=== PATIENT | female | born 1945 | race Caucasian/White ===

== ENCOUNTER 2016-05-31 22:27 | Observation (INO) | payer BC ==
[~2016-05-31] VITALS: Ht 152.4 cm; Wt 46.8 kg
--- NOTE | 2016-05-31 22:52 | EMERGENCY ROOM VISIT NOTE ---
History Report prepared by Manolo: Diaz Washburn Under the Supervision of: Dr. Florentino Hall M.D. First contact with patient: 22:37 Chief Complaint: WEAKNESS Stated Complaint: LETHARGIC, WEAKNESS History of Present Illness The patient is a 70 year old female who presents to the Emergency Room with complaints of persistent bilateral leg weakness for the past 24 hours. The patient has a slight headache. The patient had two new painkillers that she has never had before earlier today. The patient saw a Neurologist in [place] yesterday and was confirmed to have Parkinson's this morning. The patient had a fall in her hotel in [place] Friday night and spent the night in [place]'s ED. The patient had an X-ray that showed no fractures of the hip. She did not hit her head when she fell. The patient denies any fevers, cough, chest pain, shortness of breath, abdominal pain. The patient lives in [place] and is in [place] visiting a friend. Source of History: patient, friend Onset: 24 hours Position: leg (bilateral) Quality: other (weakness) Timing: other (persistent) Associated Symptoms: + headache, No SOB, No abdominal pain, No chest pain, No cough, No fevers Review of Systems See HPI for pertinent positives & negatives. A total of 10 systems reviewed and were otherwise negative. Past Medical & Surgical Medical Problems: (1) Parkinson disease Old medical records were attempted to be reviewed but there are no old records at this hospital. Nurse's notes were reviewed and I agree with. Family History FH: Parkinson's disease Social History Smoking Status: Never Smoker Housing Status: lives alone Current/Historical Medications Scheduled Atorvastatin (Lipitor), 10 MG PO DAILY Clopidogrel (Plavix), 75 MG PO DAILY Cyanocobalamin (Vitamin B-12), 1,000 MCG PO DAILY Donepezil Hydrochloride (Aricept), 10 MG PO DAILY Escitalopram (Lexapro), 10 MG PO DAILY Levothyroxine Sodium (Synthroid), 50 MCG PO DAILY Metoprolol Succ (Toprol Xl) (Toprol-Xl), 25 MG PO DAILY Scheduled PRN Naproxen (Aleve), 220 MG PO Q12 PRN for Pain Allergies Coded Allergies: No Known Allergies (Unverified , 05/31/16) Physical Exam Vital Signs Date Time Temp Pulse Resp B/P Pulse Ox O2 Delivery O2 Flow Rate FiO2 06/01/16 02:04 69 06/01/16 00:27 63 16 06/01/16 00:17 125/49 05/31/16 23:57 68 17 05/31/16 23:42 61 17 05/31/16 23:29 123/73 05/31/16 23:27 66 17 05/31/16 23:12 68 23 05/31/16 22:59 109/52 05/31/16 22:57 64 17 05/31/16 22:49 67 05/31/16 22:35 97 Room Air 05/31/16 22:35 37.2 68 16 157/60 96 Room Air 05/31/16 22:31 157/60 Physical Exam General: Non ill appearing older female, sleepy but arousable. HEENT: Normal cephalic atraumatic. Pupils are equal round and reactive to light. Extraocular movements are intact. Oropharynx is pink with moist mucous membranes. No swelling of the mouth lips or tongue. Neck: Supple with a midline trachea. No meningeal signs or stiffness, no JVD or bruits. No Stridor. Chest: Clear to auscultation bilaterally. No wheezes or rhonchi. No increased work of breathing. Heart: regular rate and rhythm. Abdomen: Soft nontender, nondistended without rebound guarding or rigidity. Extremities: Bruising on the left leg, pain with movement of the right hip. Spine/Back. Non tender to palpation. No CVA tenderness Skin: Good turgor without rashes. Neurologic exam: Cranial nerves two through 12 are intact. Motor and sensation are intact and symmetrical throughout. Medical Decision & Procedures ER Provider Diagnostic Interpretation: X-ray results as stated below per interpretation by me. CT results as stated below per my review and radiologist interpretation: CT HEAD: No intracranial hemorrhage or mass effect. Radiologist: Danny Donahue MD. CHEST X-RAY: Chest x-ray per my interpretation reveals no pneumothorax, failure , or infiltrate. Laboratory Results 05/31/16 23:15 Red Blood Count 3.52, Mean Corpuscular Volume 90.9, Mean Corpuscular Hemoglobin 30.1, Mean Corpuscular Hemoglobin Concent 33.1, Mean Platelet Volume 10.3, Neutrophils (%) (Auto) 85.2, Lymphocytes (%) (Auto) 5.9, Monocytes (%) (Auto) 8.6, Eosinophils (%) (Auto) 0.1, Basophils (%) (Auto) 0.1, Neutrophils # (Auto) 9.40, Lymphocytes # (Auto) 0.65, Monocytes # (Auto) 0.95, Eosinophils # (Auto) 0.01, Basophils # (Auto) 0.01 05/31/16 23:15 Test 05/31/16 23:15 05/31/16 23:19 05/31/16 23:33 06/01/16 00:25 White Blood Count 11.03 K/uL (4.8-10.8) Red Blood Count 3.52 M/uL (4.2-5.4) Hemoglobin 10.6 g/dL (12.0-16.0) Hematocrit 32.0 % (37-47) Mean Corpuscular Volume 90.9 fL (80-100) Mean Corpuscular Hemoglobin 30.1 pg (25-34) Mean Corpuscular Hemoglobin Concent 33.1 g/dl (32-36) Platelet Count 234 K/uL (130-400) Mean Platelet Volume 10.3 fL (7.4-10.4) Neutrophils (%) (Auto) 85.2 % Lymphocytes (%) (Auto) 5.9 % Monocytes (%) (Auto) 8.6 % Eosinophils (%) (Auto) 0.1 % Basophils (%) (Auto) 0.1 % Neutrophils # (Auto) 9.40 K/uL (1.4-6.5) Lymphocytes # (Auto) 0.65 K/uL (1.2-3.4) Monocytes # (Auto) 0.95 K/uL (0.11-0.59) Eosinophils # (Auto) 0.01 K/uL (0-0.5) Basophils # (Auto) 0.01 K/uL (0-0.2) RDW Standard Deviation 47.7 fL (36.4-46.3) RDW Coefficient of Variation 14.4 % (11.5-14.5) Immature Granulocyte % (Auto) 0.1 % Immature Granulocyte # (Auto) 0.01 K/uL (0.00-0.02) Prothrombin Time 11.2 SECONDS (9.0-12.0) Prothromb Time International Ratio 1.0 (0.9-1.1) Activated Partial Thromboplast Time 21.2 SECONDS (21.0-31.0) Partial Thromboplastin Ratio 0.8 Anion Gap 10.0 mmol/L (3-11) Est Creatinine Clear Calc Drug Dose 36.5 ml/min Estimated GFR () 65.2 Estimated GFR (Non- 56.2 BUN/Creatinine Ratio 20.0 (10-20) Calcium Level 9.1 mg/dl (8.5-10.1) Total Bilirubin 0.8 mg/dl (0.2-1) Direct Bilirubin 0.2 mg/dl (0-0.2) Aspartate Amino Transf (AST/SGOT) 26 U/L (15-37) Alanine Aminotransferase (ALT/SGPT) 24 U/L (12-78) Alkaline Phosphatase 62 U/L (45-117) Total Creatine Kinase 150 U/L (26-192) Creatine Kinase MB 3.3 ng/ml (0.5-3.6) Creatine Kinase MB Ratio 2.2 (0-3.0) Total Protein 6.9 gm/dl (6.4-8.2) Albumin 3.8 gm/dl (3.4-5.0) Lipase 286 U/L (73-393) Bedside Glucose 133 mg/dl (70-90) Bedside Troponin I 0.000 ng/ml (0-0.045) Urine Color YELLOW Urine Appearance CLEAR (CLEAR) Urine pH 5.5 (4.5-7.5) Urine Specific [place] 1.014 (1.000-1.030) Urine Protein NEG (NEG) Urine Glucose (UA) NEG (NEG) Urine Ketones 1+ (NEG) Urine Occult Blood NEG (NEG) Urine Nitrite NEG (NEG) Urine Bilirubin NEG (NEG) Urine Urobilinogen NEG (NEG) Urine Leukocyte Esterase NEG (NEG) Laboratory studies as stated above per my review. ECG Indication: weakness Rate (beats per minute): 70 Rhythm: normal sinus Findings: no acute ischemic change, prolonged QT (mild), no ectopy Comparison ECG Date: no prior available ED Course 2240: Past medical records reviewed. The patient was evaluated in room B12a, and a complete history and physical examination were performed. 2355: The patient seems to be doing better. She is more awake now. 0220: Reassessed the patient. She is doing well. I will see if her and her family are up for discharge. Medical Decision Differential diagnosis includes infection, dehydration, electrolyte or metabolic abnormality, trauma, anemia. This patient comes in as described above. She was placed in room B12. she complains of feeling tired and weak. She has fallen several times recently. She did not fall today however. She was seen at [facility] yesterday by a neurologist for possible Parkinson's. She is not on any medications for this yet. She has been on pain medication after she fell yesterday and injured her right hip. She has no focal numbness weakness but it hurts to move the right hip she had imaging at [place] and they came here today to visit her friend. IV access was established and multiple blood testing was obtained. She has no fever or white count to suggest infection. She's no acute electrolyte or metabolic abnormalities. CAT scan of her head was unremarkable as was chest x-ray. EKG does not suggest acute coronary syndrome or arrhythmia. I think a lot of this may be related to the pain medication. She also has some underlying Parkinson's disease. She however is unable to ambulate even with a walker very well. I have consulted Dr. Laguna, who saw her in the ER. He would like to get a CAT scan of her back which I ordered as well as a CAT scan of her abdomen. She will be admitted. Impression Primary Impression: Weakness Additional Impression: Parkinson disease Scribe Attestation The scribe's documentation has been prepared under my direction and personally reviewed by me in its entirety. I confirm that the note above accurately reflects all work, treatment, procedures, and medical decision making performed by me. Departure Information Dispostion Home / Self-Care Forms HOME CARE DOCUMENTATION FORM, IMPORTANT VISIT INFORMATION Patient Instructions My [facility] Additional Instructions Rest. Drink plenty of fluids. Be careful getting up and down. Use a walker. The pain medicine seems may make you tired try to limit the usage REturn if: worsening of symptoms, fever, any new problems or concerns. Follow- up with your doctor on Friday for recheck Problem Qualifiers
[2016-05-31] MEDS ORDERED: ATOR10TA88 PO (23:10)
[2016-05-31] MEDS ORDERED: CYAN10005 PO (23:10)
[2016-05-31] MEDS ORDERED: ESCI10TA17 PO (23:10)
[2016-05-31] MEDS ORDERED: LEVO50TA PO (23:10)
[2016-05-31] MEDS ORDERED: DONE10TA12 PO (23:10)
[2016-05-31] MEDS ORDERED: NAPR1TAB9 PO (23:10)
[2016-05-31] MEDS ORDERED: CLOP1TAB15 PO (23:10)
[2016-05-31] MEDS ORDERED: METO25TA3 PO (23:10)
[2016-05-31 23:37] LABS: MEAN CELL VOLUME 90.9 fL (80-100); MEAN CORPUSCULAR HEMOGLOBIN 30.1 pg (25-34); MEAN CORPUSCULAR HGB CONC 33.1 g/dl (32-36); MEAN PLATELET VOLUME 10.3 fL (7.4-10.4); PLATELET COUNT 234 K/uL (130-400); RED BLOOD COUNT 3.52 M/uL (4.2-5.4); WHITE BLOOD COUNT 11.03 K/uL (4.8-10.8)
[2016-05-31 23:45] LABS: PARTIAL THROMBOPLASTIN RATIO 0.8; PROTHROMBIN TIME (PATIENT) 11.2 SECONDS (9.0-12.0)
[2016-06-01] LABS: CKMB/CK RATIO 2.2 (0-3.0)
[2016-06-01 00:02] LABS: BASO % 0.1 %; BASO ABS # 0.01 K/uL (0-0.2); COMPLETE YES; EOS % 0.1 %; IG% 0.1 %; LYMPH % 5.9 %; LYMPH ABS # 0.65 K/uL (1.2-3.4); MONO % 8.6 %; NEUT % 85.2 %
[2016-06-01 00:46] LABS: URINE APPEARANCE CLEAR (CLEAR); URINE BILIRUBIN NEG (NEG); URINE COLOR YELLOW; URINE NITRITE NEG (NEG); URINE PH 5.5 (4.5-7.5); URINE SPECIFIC GRAVITY 1.014 (1.000-1.030); UROBILINOGEN NEG (NEG)
[2016-06-01 00:52] LABS: MANUAL MICROSCOPIC REQUIRED? NO; REVIEW REQ? NO
[2016-06-01 01:15] LABS: CALCIUM 9.1 mg/dl (8.5-10.1)
[2016-06-01] MEDS ORDERED: OPTIRAY 320 IV PRN (03:30)
[2016-06-01] MEDS ORDERED: ONDANSETRON INJ 2 MG/ML 2 ML VIAL IV PRN (03:45)
--- NOTE | 2016-06-01 04:26 | History and Physical ---
History & Physical Date & Time of Service: Jun 01, 2016 at 04:18 Chief Complaint: Lethargic, Weakness Primary Care Physician: No Doctor, Assigned History of Present Illness Source: patient The patient is a 70-year-old female who presents to the emergency department with complaint of bilateral lower extremity weakness over the past 24 hours. The patient saw a neurologist at [facility] yesterday, and was given a diagnosis of Parkinson's. Later on yesterday she had a fall in her hotel, and spent the night in the emergency department at [facility], with a negative workup including no fractures of the hip. She denies any head trauma during the fall. She was given 2 new painkillers from the ED at [facility], and took them for the first time this morning. The patient lives in [place], and is presently visiting a friend in [place], when her symptoms developed. Past Medical/Surgical History Medical Problems: (1) Parkinson disease Status: Chronic Family History FH: Parkinson's disease Social History Smoking Status: Never Smoker Smokeless Tobacco Use: No Alcohol Use: none Drug Use: none Occupational Status: retired Multi-Drug Resistant Organisms History of MDRO: No Allergies Coded Allergies: No Known Allergies (Unverified , 05/31/16) Home Medications Scheduled Atorvastatin (Lipitor), 10 MG PO DAILY Clopidogrel (Plavix), 75 MG PO DAILY Cyanocobalamin (Vitamin B-12), 1,000 MCG PO DAILY Donepezil Hydrochloride (Aricept), 10 MG PO DAILY Escitalopram (Lexapro), 10 MG PO DAILY Levothyroxine Sodium (Synthroid), 50 MCG PO DAILY Metoprolol Succ (Toprol Xl) (Toprol-Xl), 25 MG PO DAILY Scheduled PRN Naproxen (Aleve), 220 MG PO Q12 PRN for Pain Review of Systems The patient denies chest pain, palpitations, shortness of breath, cough, lower extremity swelling, vision change, hearing change, sore throat, fevers, chills, sweats, weight change, fatigue, nausea, vomiting, abdominal pain, pelvic pain, blood in urine or stool, dysuria, urinary frequency or urgency, lightheadedness , dizziness, headache, memory loss, rash, abnormal bruising or bleeding, arthralgias or myalgias, back or neck pain, night sweats, or allergy symptoms. The review of systems is otherwise negative other than for that already noted above, and at least 10 systems have been reviewed. Physical Exam Vital Signs Date Time Temp Pulse Resp B/P Pulse Ox O2 Delivery O2 Flow Rate FiO2 06/01/16 02:59 120/56 06/01/16 02:32 61 9 81 06/01/16 02:04 69 06/01/16 01:59 98/47 06/01/16 00:59 101/62 06/01/16 00:32 63 19 06/01/16 00:27 63 16 06/01/16 00:17 125/49 05/31/16 23:57 68 17 05/31/16 23:42 61 17 05/31/16 23:29 123/73 05/31/16 23:27 66 17 05/31/16 23:12 68 23 05/31/16 22:59 109/52 05/31/16 22:57 64 17 05/31/16 22:49 67 05/31/16 22:35 97 Room Air 05/31/16 22:35 37.2 68 16 157/60 96 Room Air 05/31/16 22:31 157/60 The patient is awake, alert and oriented 3, normocephalic and atraumatic, lying in bed and in no acute distress. HEENT--PERRL, EOMI, mucous membranes and oropharynx dry. Neck--supple, no JVD or bruits, thyroid normal, trachea midline, no adenopathy. Heart--normal S1 and S2, no extra beats, no murmurs, rubs or gallops. Lungs--clear bilaterally, no respiratory distress, no accessory muscle use. Abdomen--normal bowel sounds and soft, nontender and nondistended, no hernias or masses, no organomegaly. Extremities--no cyanosis, clubbing or edema. There are good distal pulses b/l. Dermatologic--normal skin turgor, normal color, warm and dry, no abnormal lymph nodes, no rash. Neurologic--cranial nerves II through XII grossly intact, sensation intact, motor strength lower extremities 4+ out of 5 bilaterally, upper extremities motor is normal. Psychiatric--normal affect. Diagnostics Laboratory Results Results Past 24 Hours Test 05/31/16 23:15 05/31/16 23:19 05/31/16 23:33 06/01/16 00:25 Range/Units White Blood Count 11.03 4.8-10.8 K/uL Red Blood Count 3.52 4.2-5.4 M/uL Hemoglobin 10.6 12.0-16.0 g/dL Hematocrit 32.0 37-47 % Mean Corpuscular Volume 90.9 80-100 fL Mean Corpuscular Hemoglobin 30.1 25-34 pg Mean Corpuscular Hemoglobin Concent 33.1 32-36 g/dl Platelet Count 234 130-400 K/uL Mean Platelet Volume 10.3 7.4-10.4 fL Neutrophils (%) (Auto) 85.2 % Lymphocytes (%) (Auto) 5.9 % Monocytes (%) (Auto) 8.6 % Eosinophils (%) (Auto) 0.1 % Basophils (%) (Auto) 0.1 % Neutrophils # (Auto) 9.40 1.4-6.5 K/uL Lymphocytes # (Auto) 0.65 1.2-3.4 K/uL Monocytes # (Auto) 0.95 0.11-0.59 K/uL Eosinophils # (Auto) 0.01 0-0.5 K/uL Basophils # (Auto) 0.01 0-0.2 K/uL RDW Standard Deviation 47.7 36.4-46.3 fL RDW Coefficient of Variation 14.4 11.5-14.5 % Immature Granulocyte % (Auto) 0.1 % Immature Granulocyte # (Auto) 0.01 0.00-0.02 K/uL Prothrombin Time 11.2 9.0-12.0 SECONDS Prothromb Time International Ratio 1.0 0.9-1.1 Activated Partial Thromboplast Time 21.2 21.0-31.0 SECONDS Partial Thromboplastin Ratio 0.8 Sodium Level 142 136-145 mmol/L Potassium Level 4.0 3.5-5.1 mmol/L Chloride Level 105 98-107 mmol/L Carbon Dioxide Level 27 21-32 mmol/L Anion Gap 10.0 3-11 mmol/L Blood Urea Nitrogen 20 7-18 mg/dl Creatinine 1.00 0.60-1.20 mg/dl Est Creatinine Clear Calc Drug Dose 36.5 ml/min Estimated GFR () 65.2 Estimated GFR (Non- 56.2 BUN/Creatinine Ratio 20.0 10-20 Random Glucose 136 70-99 mg/dl Calcium Level 9.1 8.5-10.1 mg/dl Total Bilirubin 0.8 0.2-1 mg/dl Direct Bilirubin 0.2 0-0.2 mg/dl Aspartate Amino Transf (AST/SGOT) 26 15-37 U/L Alanine Aminotransferase (ALT/SGPT) 24 12-78 U/L Alkaline Phosphatase 62 45-117 U/L Total Creatine Kinase 150 26-192 U/L Creatine Kinase MB 3.3 0.5-3.6 ng/ml Creatine Kinase MB Ratio 2.2 0-3.0 Total Protein 6.9 6.4-8.2 gm/dl Albumin 3.8 3.4-5.0 gm/dl Lipase 286 73-393 U/L Bedside Glucose 133 70-90 mg/dl Bedside Troponin I 0.000 0-0.045 ng/ml Urine Color YELLOW Urine Appearance CLEAR CLEAR Urine pH 5.5 4.5-7.5 Urine Specific [place] 1.014 1.000-1.030 Urine Protein NEG NEG Urine Glucose (UA) NEG NEG Urine Ketones 1+ NEG Urine Occult Blood NEG NEG Urine Nitrite NEG NEG Urine Bilirubin NEG NEG Urine Urobilinogen NEG NEG Urine Leukocyte Esterase NEG NEG Microbiology Results 06/01/16 Urine Culture, Received Pending Impression Assessment and Plan Bilateral lower extremity weakness causing ambulatory dysfunction--the patient will be admitted to the medical floor. CT of the head and lumbar spine were both negative. Her symptoms are likely related to underlying Parkinson's, and the opiate pain medication she was started on yesterday. The patient will not get any further opiate medications, and we'll consult neurology regarding her symptoms. We'll consult physical therapy and occupational therapy as well. Hypertension--continue metoprolol succinate 25 mg by mouth daily, and Plavix 75 mg by mouth daily. Hypercholesterolemia--continue atorvastatin 10 mg by mouth daily. Depression--continue Lexapro 10 mg by mouth daily. Hypothyroidism--continue levothyroxine sodium 50 g by mouth daily. Vitamin B-12 deficiency--continue supplement 1000 g by mouth daily. Level of Care Med/Surg Advanced Directives Existing Advance Directive: No Existing Living Will: No Existing Power of Reel Cutter: No Resuscitation Status FULL RESUSCITATION VTE Prophylaxis VTE Risk Assessment Done? Y/N: Yes Risk Level: High
[2016-06-01] MEDS ORDERED: IV FLUIDS COMPLETED PRN (05:15)
--- NOTE | 2016-06-01 06:12 | DIAGNOSTIC IMAGING REPORT ---
CHEST ONE VIEW PORTABLE CLINICAL HISTORY: Atypical chest pain COMPARISON STUDY: No previous studies for comparison. FINDINGS: The cardiac and mediastinal contours are normal. There is no evidence of focal pulmonary consolidation. There is no evidence of failure. No pleural effusions are visualized.[ The patient appears mildly hyperinflated. There is an azygos fissure. IMPRESSION: No active disease in the chest. Electronically signed by: Marcos Sanabria M.D. 06/01/2016 6:11 AM Dictated Date/Time: 06/01/2016 6:10 AM
[2016-06-01 06:17] VITALS: BP 153/79; PULSE 68; TEMP 36.8; O2SAT 100; Ht 152.4 cm; Wt 46.8 kg
[2016-06-01] MEDS: LEVOTHYROXINE 50 MCG TAB PO SCH (06:38)
[2016-06-01] MEDS: NSS + 20MEQ KCL 1000ML 1,000 ML IV SCH ×2 (06:38→16:26)
--- NOTE | 2016-06-01 06:40 | DIAGNOSTIC IMAGING REPORT ---
CT HEAD WITHOUT CONTRAST (CT) CLINICAL HISTORY: Weakness, possible stroke COMPARISON STUDY: No previous studies for comparison. TECHNIQUE: Axial CT of the brain is performed from the vertex to the skull base. IV contrast was not administered for this examination. CT DOSE: 1203.96 mGy.cm FINDINGS: No intra or extra-axial mass lesions are visualized. There is no CT evidence of acute cortical infarction. There is no evidence of midline shift. There is no acute hemorrhage. No calvarial fractures are visualized. There are minor white matter hypodensities likely on a small vessel basis. There is subtle hypodensity within the left external capsule, likely relating to a prior ischemic insult. There is no evidence of pathologic ventricular dilatation. There is no evidence of acute sinusitis IMPRESSION: No acute intracranial findings Electronically signed by: Marcos Sanabria M.D. 06/01/2016 6:39 AM Dictated Date/Time: 06/01/2016 6:38 AM
[2016-06-01 07:18] VITALS: BP 126/77; PULSE 67; TEMP 36.6; O2SAT 97
[2016-06-01] MEDS: CLOPIDOGREL BISULFATE 75 MG TAB PO SCH (09:07)
[2016-06-01] MEDS: DONEPEZIL HCL 10 MG TAB PO SCH (09:08)
[2016-06-01] MEDS: ESCITALOPRAM OXALATE 10 MG TAB PO SCH (09:08)
[2016-06-01] MEDS: ATORVASTATIN 10 MG TAB PO SCH (09:08)
[2016-06-01] MEDS: CYANOCOBALAMIN 500 MCG TAB (VIT B-12) PO SCH (09:08)
[2016-06-01] MEDS: METOPROLOL SUCC 25MG EXT REL TAB PO SCH (09:08)
--- NOTE | 2016-06-01 09:23 | DIAGNOSTIC IMAGING REPORT ---
CT ABD/PELVIS IV CONTRAST ONLY CLINICAL HISTORY: Abdominal pain status post trauma COMPARISON STUDY: None. TECHNIQUE: Following the IV administration of 109 mL of Optiray-320, CT scan of the abdomen and pelvis was performed from the lung bases to the proximal femurs. Images are reviewed in the axial, sagittal, and coronal planes. IV contrast was administered without complication. CT DOSE: 245.71 mGy.cm FINDINGS: Lower chest: The heart is normal in size and configuration, without pericardial effusion. The lung bases and pleural spaces are clear. Liver: There is hepatic steatosis. No focal masses are visualized. Gallbladder: Cholelithiasis. 8 mm common bile duct Spleen: Normal in size and attenuation. Pancreas: Unremarkable. Adrenal glands: Unremarkable. Kidneys: There is symmetric renal cortical enhancement. The kidneys are normal in size without hydronephrosis. Bowel: There are no transition zones indicate bowel obstruction. There are nonspecific central mesenteric calcifications, with equivocal mild central mesenteric edema.. Evaluation of this area is limited due to the lack of orally administered contrast. Peritoneum: There is no intraperitoneal free air or abdominal ascites. Vasculature: The abdominal aorta is normal in course and caliber. Adenopathy: None. Pelvic viscera: No pathologic pelvic masses are visualized. Skeletal structures: There is enlargement and edema of the right iliopsoas. There is edema adjacent to the right femoral vasculature. IMPRESSION: 1. Enlargement and edema of the right iliopsoas muscle. There is also edema adjacent the right femoral vasculature. In the setting of trauma, this may indicate a hematoma/muscle strain. An inflammatory process could appear similar. 2. Mild calcification and edema within the central mesentery. 3. No evidence of bowel obstruction. No evidence of free air 4. Cholelithiasis. Mildly dilated common bile duct. 5. Fecal retention Electronically signed by: Marcos Sanabria M.D. 06/01/2016 9:22 AM Dictated Date/Time: 06/01/2016 9:14 AM
--- NOTE | 2016-06-01 09:26 | DIAGNOSTIC IMAGING REPORT ---
CT LUMBAR SPINE WITHOUT CT DOSE: CLINICAL HISTORY: Low back pain status post trauma TECHNIQUE: Helical images were acquired in transverse plane. Reformatted sagittal and coronal images were reviewed. CONTRAST: No contrast was administered COMPARISON STUDY: None. FINDINGS: L1-2 level: There is no evidence of significant disc bulge or focal herniation. There is no evidence of spinal or foraminal stenosis. L2-3 level: There is no evidence of significant disc bulge or focal herniation. There is no evidence of spinal or foraminal stenosis. L3-4 level: There is a mild circumferential disc bulge. There is mild triangular spinal canal narrowing. L4-5 level: There is a mild circumferential disc bulge. There is facet joint arthropathy. There is a grade 1 spondylolisthesis of L4 and L5. There is mild to moderate spinal stenosis. L5-S1 level: There is no evidence of significant disc bulge or focal herniation. There is no evidence of spinal or foraminal stenosis. There is moderate facet joint arthropathy. No acute fractures or traumatic subluxations are visualized. IMPRESSION: Degenerative changes. No acute fractures or traumatic subluxations are visualized. Electronically signed by: Marcos Sanabria M.D. 06/01/2016 9:25 AM Dictated Date/Time: 06/01/2016 9:22 AM
--- NOTE | 2016-06-01 10:49 | Neurology Consultation ---
Neurology Consultation Date of Consultation: Jun 01, 2016. Attending Physician: Connor Navarrete M.D. Primary Care Physician: No Doctor, Assigned Reason for Consultation: Consultation for falls and recent diagnosis of Parkinson's disease History of Present Illness Source: patient, hospital records This is a 70-year-old female who presents after a fall. The patient reports that she had approximately 6 falls last year and 2 falls this year. She reports mainly she falls forward. She reports she tends to trip over her feet. She reports decreased smell for the last few years. She says that she does have tremors but they tend to be fairly equal may be right greater than left. She reports low voice volume. Trouble swallowing. She reports that she's had memory dementia symptoms for the last year. She reports initial symptoms were more hallucinations of seeing people. She reports some rare at this time. Hallucinations have been occurring for the last 2 years. She reports then she started to have more of the memory/dementia symptoms. And then tremors can last. Patient reports since her last fall she is having some right hip pain that limits her movement. She reports that she was just diagnosed with Parkinson 's last Friday by [facility] at [place] but she cannot remember their name. She denies that she was placed on any medications for Parkinson's. She reports that they told her that there was a mass in her colon that was the reason for her Parkinson's? CT of the abdomen and pelvis done this admission did not show any mass. Reports decreased sense of smell for the last few years CT of the head and CT of the lumbar spine were reviewed by myself and unremarkable Lab work and UA were unremarkable The rest of history taking is somewhat limited secondary to mental status Past Medical/Surgical History Medical Problems: (1) Parkinson disease Status: Chronic (2) Weakness Status: Acute Patient reports a history of breast cancer status post bilateral mastectomy Dementia Family History Patient reports a family history of her brother and father with Parkinson's disease Social History Patient reports that she lives either with her daughter near [place] or her "gentleman friend" in [place]. She reports that her daughter is in charge of her finances. She no longer drives that she started having hallucinations. Smokeless Tobacco Use: No Alcohol Use: none Drug Use: none Housing Status: lives alone Occupation Status: retired Allergies Coded Allergies: No Known Allergies (Unverified , 05/31/16) Current Inpatient Medications Current Inpatient Medications Medications (Trade) Dose Ordered Sig/Ana Route Start Time Stop Time Status Last Admin Dose Admin Ioversol (Optiray 320) 125 ml UD PRN IV 06/01/16 03:30 06/05/16 03:29 Acetaminophen (Tylenol Tab) 650 mg Q4H PRN PO 06/01/16 03:45 07/01/16 03:44 Atorvastatin Calcium (Lipitor Tab) 10 mg DAILY PO 06/01/16 09:00 07/01/16 08:59 06/01/16 09:08 10 MG Clopidogrel Bisulfate (plAVix TAB) 75 mg DAILY PO 06/01/16 09:00 07/01/16 08:59 06/01/16 09:07 75 MG Cyanocobalamin (Vitamin B-12 Tab) 1,000 mcg DAILY PO 06/01/16 09:00 07/01/16 08:59 06/01/16 09:08 1,000 MCG Donepezil HCl (Aricept Tab) 10 mg DAILY PO 06/01/16 09:00 07/01/16 08:59 06/01/16 09:08 10 MG Escitalopram Oxalate (Lexapro Tab) 10 mg DAILY PO 06/01/16 09:00 07/01/16 08:59 06/01/16 09:08 10 MG Levothyroxine Sodium (Synthroid Tab) 50 mcg DAILYBB PO 06/01/16 06:30 07/01/16 06:59 06/01/16 06:38 50 MCG Metoprolol Succinate (Toprol Xl Tab) 25 mg DAILY PO 06/01/16 09:00 07/01/16 08:59 06/01/16 09:08 25 MG Ondansetron HCl 4 mg 4 mg Q6H PRN IV 06/01/16 03:45 07/01/16 03:44 Potassium Chloride/Sodium Chloride (Nss + 20meq KCl 1000ml) 1,000 ml @ 100 mls/hr Q10H IV 06/01/16 06:00 07/01/16 05:59 06/01/16 06:38 100 MLS/HR Miscellaneous (Iv Fluids Completed) 1 ea PRN PRN N/A 06/01/16 05:15 06/01/17 05:14 Review of Systems Patient reports some right hip pain since her fall. Sometimes feels lightheaded. Otherwise complete review systems otherwise negative for the above- noted history of present illness. Physical Exam Vital Signs (Past 24 Hrs): Date Time Temp Pulse Resp B/P Pulse Ox O2 Delivery O2 Flow Rate FiO2 06/01/16 07:18 36.6 67 15 126/77 97 Room Air 06/01/16 06:17 36.8 68 16 153/79 100 Room Air 06/01/16 05:00 70 14 97 06/01/16 04:59 130/64 06/01/16 04:17 148/88 06/01/16 03:00 59 20 90 06/01/16 02:59 120/56 06/01/16 02:32 61 9 81 06/01/16 02:04 69 06/01/16 01:59 98/47 06/01/16 00:59 101/62 06/01/16 00:32 63 19 06/01/16 00:27 63 16 06/01/16 00:17 125/49 05/31/16 23:57 68 17 05/31/16 23:42 61 17 05/31/16 23:29 123/73 05/31/16 23:27 66 17 05/31/16 23:12 68 23 05/31/16 22:59 109/52 05/31/16 22:57 64 17 05/31/16 22:49 67 05/31/16 22:35 97 Room Air 05/31/16 22:35 37.2 68 16 157/60 96 Room Air 05/31/16 22:31 157/60 Gen.: Patient is alert and sitting in bed, in no acute distress. HEENT: Normocephalic /atraumatic, no scleral icterus Heart: Regular rate and rhythm Extremities: No gross deformities or rashes noted Neurological examination: Mental status: Patient is alert and oriented to person and place. History is somewhat limited secondary to mental status. Poor details for her own medical history. Speech is fluent without any dysarthria or aphasia noted Cranial nerve: Funduscopic examination was unremarkable. No papilledema. Pupils equally round and reactive to light. Extraocular muscles intact without nystagmus. No facial asymmetry noted. Facial sensation intact. Tongue is midline. Good palatal elevation. Good shoulder shrug bilaterally. Hearing grossly intact to voice. Strength: 5/5 both proximal and distally in all extremities, but limited with right hip flexion secondary to hip pain. There is no arm drift. Sensation: Grossly intact to light touch in all extremities. Deep tendon reflexes: +1 in bilateral biceps, brachioradialis and patellar. Coordination: Patient had good finger to nose without dysmetria Station within the bed was normal Neuromuscular examination: Patient did appear to have some masked face and hypophonia. No active hallucinations. The patient did have some mild cogwheel rigidity left greater than right upper extremity. No significant rigidity and lower extremity. No resting tremors seen during this examination. No typical Parkinson's tremor seen. Patient did have some mild high-frequency low amplitude action tremors Decent rapid hand movements bilaterally. Gait: Patient was fairly unstable. Took small shuffling steps. Difficult to assess arm swing as the patient was not very steady and could not walk very far. No tremor seen with walking. Took approximately 4 steps to turn around Laboratory Results Past 24 Hours: 05/31/16 23:15 Red Blood Count 3.52, Mean Corpuscular Volume 90.9, Mean Corpuscular Hemoglobin 30.1, Mean Corpuscular Hemoglobin Concent 33.1, Mean Platelet Volume 10.3, Neutrophils (%) (Auto) 85.2, Lymphocytes (%) (Auto) 5.9, Monocytes (%) (Auto) 8.6, Eosinophils (%) (Auto) 0.1, Basophils (%) (Auto) 0.1, Neutrophils # (Auto) 9.40, Lymphocytes # (Auto) 0.65, Monocytes # (Auto) 0.95, Eosinophils # (Auto) 0.01, Basophils # (Auto) 0.01 05/31/16 23:15 Test 05/31/16 23:15 05/31/16 23:19 05/31/16 23:33 06/01/16 00:25 White Blood Count 11.03 K/uL (4.8-10.8) Red Blood Count 3.52 M/uL (4.2-5.4) Hemoglobin 10.6 g/dL (12.0-16.0) Hematocrit 32.0 % (37-47) Mean Corpuscular Volume 90.9 fL (80-100) Mean Corpuscular Hemoglobin 30.1 pg (25-34) Mean Corpuscular Hemoglobin Concent 33.1 g/dl (32-36) Platelet Count 234 K/uL (130-400) Mean Platelet Volume 10.3 fL (7.4-10.4) Neutrophils (%) (Auto) 85.2 % Lymphocytes (%) (Auto) 5.9 % Monocytes (%) (Auto) 8.6 % Eosinophils (%) (Auto) 0.1 % Basophils (%) (Auto) 0.1 % Neutrophils # (Auto) 9.40 K/uL (1.4-6.5) Lymphocytes # (Auto) 0.65 K/uL (1.2-3.4) Monocytes # (Auto) 0.95 K/uL (0.11-0.59) Eosinophils # (Auto) 0.01 K/uL (0-0.5) Basophils # (Auto) 0.01 K/uL (0-0.2) RDW Standard Deviation 47.7 fL (36.4-46.3) RDW Coefficient of Variation 14.4 % (11.5-14.5) Immature Granulocyte % (Auto) 0.1 % Immature Granulocyte # (Auto) 0.01 K/uL (0.00-0.02) Prothrombin Time 11.2 SECONDS (9.0-12.0) Prothromb Time International Ratio 1.0 (0.9-1.1) Activated Partial Thromboplast Time 21.2 SECONDS (21.0-31.0) Partial Thromboplastin Ratio 0.8 Anion Gap 10.0 mmol/L (3-11) Est Creatinine Clear Calc Drug Dose 36.5 ml/min Estimated GFR () 65.2 Estimated GFR (Non- 56.2 BUN/Creatinine Ratio 20.0 (10-20) Calcium Level 9.1 mg/dl (8.5-10.1) Total Bilirubin 0.8 mg/dl (0.2-1) Direct Bilirubin 0.2 mg/dl (0-0.2) Aspartate Amino Transf (AST/SGOT) 26 U/L (15-37) Alanine Aminotransferase (ALT/SGPT) 24 U/L (12-78) Alkaline Phosphatase 62 U/L (45-117) Total Creatine Kinase 150 U/L (26-192) Creatine Kinase MB 3.3 ng/ml (0.5-3.6) Creatine Kinase MB Ratio 2.2 (0-3.0) Total Protein 6.9 gm/dl (6.4-8.2) Albumin 3.8 gm/dl (3.4-5.0) Lipase 286 U/L (73-393) Bedside Glucose 133 mg/dl (70-90) Bedside Troponin I 0.000 ng/ml (0-0.045) Urine Color YELLOW Urine Appearance CLEAR (CLEAR) Urine pH 5.5 (4.5-7.5) Urine Specific [place] 1.014 (1.000-1.030) Urine Protein NEG (NEG) Urine Glucose (UA) NEG (NEG) Urine Ketones 1+ (NEG) Urine Occult Blood NEG (NEG) Urine Nitrite NEG (NEG) Urine Bilirubin NEG (NEG) Urine Urobilinogen NEG (NEG) Urine Leukocyte Esterase NEG (NEG) Imaging As noted above in history of present illness Impression This is a 70-year-old female with frequent falls for the last couple years, visual hallucinations, and dementia, with parkinsonism symptoms. I think is unlikely that she has idiopathic Parkinson's. 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 Plan Recommend PT/OT evaluation and treatment. Patient may need inpatient course of rehabilitation for gait dysfunction and frequent falls. I think it unlikely that Sinemet is significantly help this patient as she does not seem to have typical idiopathic Parkinson's. It sounds like her neurologist and her she did not start her on any Parkinson's medications, possibly also believing that she has Parkinson's plus disorder that may be poorly responsive. It may be worth trying Sinemet to see if this improves some of her gait dysfunction symptoms, but Sinemet could make her lightheadedness and hallucinations worse. I have ordered low-dose Sinemet 3 times a day. If Sinemet makes her lightheadedness and hallucinations worse would recommend discontinuation. Patient should follow-up with her neurologist near her home for further evaluation and treatment. No additional neurological recommendations at this time. Thank you for allowing me to participate in this patient's care. If there is any questions or concerns , feel free to call/patient.
[2016-06-01] MEDS ORDERED: CARBIDOPA/LEVODOPA 25/100MG TAB PO SCH (14:00)
--- NOTE | 2016-06-01 15:13 | PROGRESS NOTE ---
DATE: 06/01/2016 DATE: 06/01/2016. PROBLEM LIST: Includes: 1. Bilateral lower extremity weakness. 2. Parkinsonism type symptoms consistent with Lewy body dementia. 3. Hypertension. 4. Hypercholesterolemia. 5. Depression. 6. Hypothyroidism. 7. Vitamin B12 deficiency. SUBJECTIVE: The patient reports that she is feeling much better today. Her legs do not feel as weak. Her significant other is present. The patient does have some dementia and history is a little bit suspect. The patient denies any other concerns. She denies any weakness overall. She denies any headache, no lightheadedness, no dizziness. She states that her breathing is doing well. She denies any cough, congestion, no wheezing. She denies any chest pain or chest pressure. She denies any abdominal pain and states that she is eating well. Denies any difficulty swallowing. She denies any difficulty voiding. She is not sure if her bowels have moved since she has been here or not. While I was there patient's family came in consisting of 2 daughters, 1 who lives in [facility], another from [facility]. They did inform me that the patient has a neurologist at [facility] who she follows with and had just seen recently and diagnosed her with Lewy body dementia causing Parkinsonism type symptoms. I did discuss that the patient was on Sinemet and they reported that the patient's outpatient neurologist did not want her on any type of medication like that as it may worsen some other symptoms. Family is asking that the medication be stopped at this time. They also discussed rehab. They feel that rehab would be helpful to the patient due to her leg weakness and recent fall. OBJECTIVE: GENERAL: The patient is a 70-year-old thin female in no acute distress. She is sitting on the bed. She is alert and oriented to person and place. She is interactive and cooperative. Mood is good. Affect is good. VITAL SIGNS: Temp 36.6, pulse 67, respirations 15, blood pressure is 126/77, pulse ox 97% on room air. HEAD, EYES, EARS, NOSE, AND THROAT: Normocephalic, atraumatic. Pupils equal, round and reactive to light and accommodation. Extraocular movements are intact. Berger moist gingival and buccal mucosa. NECK: Supple. No mass. No adenopathy. No bruit. No tenderness to palpation. No JVD or thyromegaly. CHEST: The patient has good air movement throughout. There is no wheeze, rale or rhonchi appreciated. CARDIOVASCULAR: Regular rate and rhythm. No murmurs, gallops or rubs. ABDOMEN: Bowel sounds are present. Abdomen soft, nontender. No guarding, rigidity or organomegaly. EXTREMITIES: No erythema, no edema. The patient does have some weakness in the right lower extremity compared to the left. Strength with left extension was 3+ to 4/5 on the right and 5/5 on the left. Knee flexion again was 3+ to 4/5 on the right and 5/5 on the left. Sensation appears to be intact and symmetrical bilaterally. NEUROLOGIC: Cranial nerves II through XII grossly intact. No focal deficits noted at this time. LABORATORY DATA: No new lab data for today. No new radiologic data. The patient did have a neurology consultation by Dr. Gutierrez with assessment of a Parkinson type disorder, looks like possibly Lewy body dementia which is in agreement with what the patient's outpatient neurologist said. At this time because of outpatient neurologist recommendations we will stop Sinemet at family's request and outpatient urology request. IMPRESSION: 1. A 70-year-old female with multiple falls as well as upper and lower extremity weakness. This is improving, but the patient still has some right lower extremity weakness at this time. PT and OT are consulted. I do feel the patient would benefit from inpatient rehabilitation. Family is targeting [facility] as the patient's family lives down in that area. 2. Lewy body dementia. At this time will stop the patient's Sinemet due to family's request and outpatient neurology request. 3. Hypertension. The patient is controlled on current medications Metoprolol 25 mg daily. 4. Hypercholesterolemia. The patient is on atorvastatin 10 mg daily. She is to continue this. 5. Depression. The patient is on Lexapro 10 mg daily. She is to continue this. 6. Hypothyroidism. She is to continue her Levothyroxine 50 mcg daily. 7. Vitamin B12 deficiency. She is on 1000 mcg of B12 daily. She is to continue this. At this point continue hospitalization based on continued weakness and possible need for rehabilitation placement. MTDD
[2016-06-01 15:47] VITALS: BP 140/68; PULSE 63; TEMP 37; O2SAT 100
[2016-06-01] MEDS: ACETAMINOPHEN 325 MG TAB PO PRN (18:53)
[2016-06-02 00:03] VITALS: BP 150/79; PULSE 59; TEMP 36.6; O2SAT 96
[2016-06-02] MEDS: NSS + 20MEQ KCL 1000ML 1,000 ML IV SCH (01:55)
[2016-06-02] MEDS: LEVOTHYROXINE 50 MCG TAB PO SCH (06:08)
[2016-06-02 06:15] LABS: BASO % 0.3 %; BASO ABS # 0.02 K/uL (0-0.2); COMPLETE YES; EOS % 1.5 %; HEMATOCRIT 30.3 % (37-47); IG% 0.2 %; LYMPH % 22.4 %; LYMPH ABS # 1.35 K/uL (1.2-3.4); MEAN CELL VOLUME 89.9 fL (80-100); MEAN CORPUSCULAR HEMOGLOBIN 29.7 pg (25-34); MEAN PLATELET VOLUME 10.4 fL (7.4-10.4); MONO % 12.4 %; NEUT % 63.2 %; PLATELET COUNT 203 K/uL (130-400); RED BLOOD COUNT 3.37 M/uL (4.2-5.4); WHITE BLOOD COUNT 6.03 K/uL (4.8-10.8)
[2016-06-02 06:50] LABS: BUN/CREATININE RATIO 12.3 (10-20); CALCIUM 8.3 mg/dl (8.5-10.1); CREATININE 0.77 mg/dl (0.60-1.20); MAGNESIUM 1.9 mg/dl (1.8-2.4); POTASSIUM 4.1 mmol/L (3.5-5.1)
[2016-06-02 07:50] VITALS: BP 188/84; PULSE 73; TEMP 36.7; O2SAT 99
[2016-06-02] MEDS: DONEPEZIL HCL 10 MG TAB PO SCH (09:19)
[2016-06-02] MEDS: ESCITALOPRAM OXALATE 10 MG TAB PO SCH (09:19)
[2016-06-02] MEDS: CYANOCOBALAMIN 500 MCG TAB (VIT B-12) PO SCH (09:20)
[2016-06-02] MEDS: METOPROLOL SUCC 25MG EXT REL TAB PO SCH (09:20)
[2016-06-02] MEDS: ATORVASTATIN 10 MG TAB PO SCH (09:20)
[2016-06-02] MEDS: CLOPIDOGREL BISULFATE 75 MG TAB PO SCH (09:20)
--- NOTE | 2016-06-02 11:44 | PROGRESS NOTE ---
DATE: 06/02/2016 HOSPITALIST PROGRESS NOTE PROBLEM LIST: Includes: 1. Bilateral lower extremity weakness. 2. Parkinson type symptoms consistent with Lewy body dementia. 3. Hypertension. 4. Hypercholesterolemia. 5. Depression. 6. Hypothyroidism. 7. Vitamin B12 deficiency. SUBJECTIVE: The patient reports that she is feeling very good today. She denies any complaints. She states that her legs do not feel that it is weak as they did. She states that they do not feel quite back to normal yet. There are no family members present with her today. She denies any other difficulties. She denies any headache or lightheadedness. She states that she is not dizzy today. She denies any difficulty swallowing. She does not have a sore throat. She denies any chest discomfort. No chest pain, no palpitation. She does not have any wheezing. She denies any shortness of breath. She denies any breathing difficulties. She denies any abdominal pain. There is no nausea or vomiting. She has not had any difficulty with her swallowing. While she is here, she is eating well. She reports that she was drinking quite a bit while she has been here. She denies any difficulty voiding. She states that she feels like her bowels need to move. She states that she feels that she has a little bit of pressure present but no pain. She is passing gas without difficulty. She denies any swelling in her extremities. She has no numbness or tingling in her extremities. She states that her legs still feel a little bit weak but it is better. In discussing with nursing staff who had her yesterday, she had no significant difficulty. The patient actually did much better once the patient's family showed up. student services director did see the patient yesterday and they are in the process of trying to get patient admitted to a rehab or a [facility] facility for rehabilitation. OBJECTIVE: GENERAL: The patient is a 70-year-old white female, in no acute distress. She is lying in bed today. There is no acute distress, no respiratory distress. She is alert and oriented x3 today. Mood is good. Affect is good. VITAL SIGNS: Temp 36.7 pulse 73, respirations 18, blood pressure is slightly elevated at 188/84, pulse ox 99% on room air. HEENT: Normocephalic, atraumatic. Pupils equal, round, and reactive to light and accommodation. Extraocular movements are intact. [place] moist gingival and buccal mucosa. NECK: Supple. No mass. No adenopathy. No bruit. No thyromegaly, no tenderness to palpation, good range of motion. CHEST: Overall clear. There is no wheeze, no rales or rhonchi. She has good air movement throughout. CARDIOVASCULAR: Regular rate and rhythm. There are no murmurs, gallops or rubs. ABDOMEN: Soft, nontender. No guarding, rigidity or organomegaly. EXTREMITIES: No erythema, no edema. She has good range of motion. She still has some slight weakness on the right compared to the left. NEUROLOGIC: Cranial nerves II-XII grossly intact. No deficit. LABORATORY DATA: Shows white count 6000, H\T\H 10.0 and 30.3, platelet count 203,000. Sodium slightly elevated at 146, chloride 111, potassium is 4.1, carbon dioxide is 26, BUN 9, creatinine 0.77 Random glucose this morning was 87 , calcium is little bit low at 8.3, magnesium 1.9. Urine culture is pending. IMPRESSION: This is a 70-year-old female who has had multiple falls recently as well as upper and lower, although it is primarily lower extremity weakness. The patient sees a neurologist in the [place] area and the patient was recently diagnosed with a Lewy body dementia with Parkinsonism type symptoms. At this time, the main concern is the patient's weakness, although it is improving and it was felt that this is most likely secondary to pain medication she was given; however, I do think the patient would benefit from some inpatient rehabilitation. The family continues to target facilities in [place] and social security assessor is working with that. 2. Lewy body dementia. The patient is followed by neurology in [place]. At this time it appears to be stable. 3. Hypertension. The patient's blood pressure is a little elevated today. The patient may be getting a little bit fluid overloaded, so we will stop the IV fluids. We will have nursing staff recheck blood pressure. If continues to be elevated, will make adjustments in her medications. Currently, she is on metoprolol 25 mg daily. 4. Hyperkalemia/hypernatremia most likely secondary to fluid replacement. At this time, will stop IV fluids. We will continue to monitor her electrolytes 5. Hypercholesterolemia. The patient is to continue her atorvastatin 10 mg daily. She has not had any difficulty with this. 6. Depression. The patient is on Lexapro 10 mg daily. She is to continue this. 7. Hypothyroidism. The patient is on 50 mcg of levothyroxine; she is stable at this level. We are going to continue her hospitalization due to weakness and awaiting placement. MTDD
--- NOTE | 2016-06-02 12:13 | Progress Note ---
Progress Note Date of Service Jun 02, 2016. Progress Note I agree with PA assessment and plan and have seen and examined pt myself VSS Labs reviewed Pt hx of parkinsons disease presents with weakness and falls No infectious etiologies Likely from parkisons Noted cogwheel rigidity in lower extremities No need for sinemet at this time Consult PT/OT Family would like all further care in [facility] as family is from there.
[2016-06-02] MEDS: ACETAMINOPHEN 325 MG TAB PO PRN (15:52)
[2016-06-02 16:00] VITALS: BP 119/74; PULSE 72; TEMP 36.6; O2SAT 100
[2016-06-03 00:34] VITALS: BP 172/91; PULSE 57; TEMP 36.3; O2SAT 97
[2016-06-03] MEDS: LEVOTHYROXINE 50 MCG TAB PO SCH (06:08)
[2016-06-03 07:39] LABS: BASO % 0.4 %; BASO ABS # 0.02 K/uL (0-0.2); COMPLETE YES; EOS % 1.8 %; HEMATOCRIT 28.9 % (37-47); IG% 0.2 %; LYMPH % 19.8 %; MEAN CELL VOLUME 92.3 fL (80-100); MEAN CORPUSCULAR HGB CONC 32.5 g/dl (32-36); MEAN PLATELET VOLUME 10.3 fL (7.4-10.4); MONO % 12.3 %; NEUT % 65.5 %; PLATELET COUNT 195 K/uL (130-400); RED BLOOD COUNT 3.13 M/uL (4.2-5.4); WHITE BLOOD COUNT 5.05 K/uL (4.8-10.8)
[2016-06-03 07:55] VITALS: BP 138/88; PULSE 60; TEMP 36.8; O2SAT 97
[2016-06-03 08:17] VITALS: O2SAT 97
[2016-06-03 08:17] LABS: BUN/CREATININE RATIO 13.2 (10-20); CALCIUM 8.6 mg/dl (8.5-10.1); CREATININE 0.77 mg/dl (0.60-1.20); MAGNESIUM 1.9 mg/dl (1.8-2.4)
[2016-06-03] MEDS: CYANOCOBALAMIN 500 MCG TAB (VIT B-12) PO SCH (08:20)
[2016-06-03] MEDS: CLOPIDOGREL BISULFATE 75 MG TAB PO SCH (08:20)
[2016-06-03] MEDS: ATORVASTATIN 10 MG TAB PO SCH (08:20)
[2016-06-03] MEDS: DONEPEZIL HCL 10 MG TAB PO SCH (08:20)
[2016-06-03] MEDS: ESCITALOPRAM OXALATE 10 MG TAB PO SCH (08:20)
[2016-06-03] MEDS: METOPROLOL SUCC 25MG EXT REL TAB PO SCH (08:20)
--- NOTE | 2016-06-03 14:49 | Hospitalist Progress Note ---
Hospitalist Progress Note Date of Service Jun 03, 2016. (Bebe Garcia ., STEPHC) Subjective Pt evaluation today including: conversation w/ patient, physical exam, chart review, lab review, review of studies, review of inpatient medication list Pain: 6/10 right hip pain PO Intake: Tolerating PO diet Voiding: no voiding problems Patient reports feeling well. She complains of an intermittent 6/10 aching pain in her right hip that does not radiate. The pain is worse with certain movements. This pain occurred following her recent fall. She is otherwise feeling well and has no new complaints. The patient denies fevers, chills, sweats, chest pain, palpitations, claudication, cough, wheezing, shortness of breath, nausea, vomiting, abdominal pain, dysuria, hematuria, urinary retention , paralysis, weakness, numbness and tingling. Additional Comments: See HPI for pertinent positives and negatives. All other systems reviewed and negative. (Bebe Garcia PA-C) Objective Vital Signs Date Time Temp Pulse Resp B/P Pulse Ox O2 Delivery O2 Flow Rate FiO2 06/03/16 08:30 Room Air 06/03/16 08:17 97 Room Air 06/03/16 07:55 36.8 60 16 138/88 97 Room Air 06/03/16 00:34 36.3 57 16 172/91 97 Room Air 57 06/03/16 00:05 Room Air 06/02/16 16:00 Room Air 06/02/16 16:00 36.6 72 18 119/74 100 Room Air (Bebe Garcia PA-C) Physical Exam General Appearance: WD/WN, no apparent distress Eyes: normal inspection, PERRL, EOMI ENT: normal ENT inspection, hearing grossly normal, pharynx normal Neck: supple, no JVD, trachea midline Respiratory/Chest: lungs clear, normal breath sounds, no respiratory distress Cardiovascular: regular rate, rhythm, no gallop, no murmur Abdomen: normal bowel sounds, non tender, soft Extremities: non-tender, normal inspection, no pedal edema, + pertinent finding (Right hip TTP) Neurologic/Psychiatric: alert, normal mood/affect, oriented x 3 Skin: normal color, warm/dry, no rash (Bebe Garcia, STEPHC) Laboratory Results Last 24 Hours Test 06/02/16 20:09 06/03/16 07:18 06/03/16 07:23 Bedside Glucose 125 mg/dl White Blood Count 5.05 K/uL Red Blood Count 3.13 M/uL Hemoglobin 9.4 g/dL Hematocrit 28.9 % Mean Corpuscular Volume 92.3 fL Mean Corpuscular Hemoglobin 30.0 pg Mean Corpuscular Hemoglobin Concent 32.5 g/dl Platelet Count 195 K/uL Mean Platelet Volume 10.3 fL Neutrophils (%) (Auto) 65.5 % Lymphocytes (%) (Auto) 19.8 % Monocytes (%) (Auto) 12.3 % Eosinophils (%) (Auto) 1.8 % Basophils (%) (Auto) 0.4 % Neutrophils # (Auto) 3.31 K/uL Lymphocytes # (Auto) 1.00 K/uL Monocytes # (Auto) 0.62 K/uL Eosinophils # (Auto) 0.09 K/uL Basophils # (Auto) 0.02 K/uL RDW Standard Deviation 49.2 fL RDW Coefficient of Variation 14.6 % Immature Granulocyte % (Auto) 0.2 % Immature Granulocyte # (Auto) 0.01 K/uL Sodium Level 140 mmol/L Potassium Level 4.0 mmol/L Chloride Level 105 mmol/L Carbon Dioxide Level 30 mmol/L Anion Gap 5.0 mmol/L Blood Urea Nitrogen 10 mg/dl Creatinine 0.77 mg/dl Est Creatinine Clear Calc Drug Dose 47.4 ml/min Estimated GFR () 89.4 Estimated GFR (Non- 77.1 BUN/Creatinine Ratio 13.2 Random Glucose 89 mg/dl Calcium Level 8.6 mg/dl Magnesium Level 1.9 mg/dl Thyroid Stimulating Hormone (TSH) 4.790 uIu/ml (Bebe Garcia, STEPHC) Assessment and Plan 70 y/o female with a recent diagnosis of Lewey body dementia with Parkinsonism, HTN, HLD, depression, and hypothyroidism presents to the ED with bilateral lower extremity weakness. Pt follows up with a neurologist at [facility]. Pt had a recent fall, denies head trauma. Head CT and lumbar spine CT no acute findings. Pt had been treated in the ED at [place] with opioid pain medication. Weakness, recent fall, h/o Lewey body dementia with Parkinsonism -Admitted to med/surg -Hold opiate medication -PT recommends acute inpatient rehab -Abd/pelvis CT 06/01: edema of right iliopsoas muscle and right femoral vasculature. Mild calcification and edema w/in central mesentery. No bowel obstruction or free air. Cholelithiasis with mildly dilated CBD. Recommend outpatient f/u. HTN--stable -Continue metoprolol succinate 25 mg PO qd HLD -Continue atorvastatin 10 mg PO qd Depression -Continue Lexapro 10 mg PO qd Hypothyroidism -Continue Synthroid 50 mcg PO qd -TSH elevated at 4.79. Should adjust Synthroid dose with PCP in [place] Code Status -Level I, FULL RESUSCITATION STATUS Dispo -Pt lives in [facility] -PT recommends acute inpt rehab. Referral placed for [facility] in [place]. Awaiting determination. (Bebe Garcia ., PA-C) Reviewed: Pt Seen/Exam by Me, CHRIS Notes, Labs, RAD (Juliane Adkins MD) History I agree with PA assessment and plan and have seen and examined pt myself VSS RRR CTAB unlabored breathing ecchymnosis on anterior left leg Right hip with min ttp anteriorly and with flexion Labs reviewed Pt hx of parkinsons disease presents with weakness and falls No infectious etiologies Likely from parkisons Noted cogwheel rigidity in lower extremities No need for sinemet at this time Consult PT/OT Family would like all further care in [facility] as family is from there- denied from ACUTE REHAB after [id number] today--> approved for SNF. (Juliane Adkins MD)
[2016-06-03 15:18] VITALS: BP 142/74; PULSE 67; TEMP 37; O2SAT 98
[2016-06-03 16:00] VITALS: O2SAT 98
[2016-06-03] MEDS: ACETAMINOPHEN 325 MG TAB PO PRN ×2 (16:00→20:07)
[2016-06-03 20:00] VITALS: O2SAT 98
[2016-06-04 00:06] VITALS: BP 120/69; PULSE 57; TEMP 36.5; O2SAT 95
[2016-06-04] MEDS: LEVOTHYROXINE 50 MCG TAB PO SCH (06:03)
[2016-06-04 07:28] LABS: HEMATOCRIT 31.2 % (37-47); MEAN CELL VOLUME 90.4 fL (80-100); MEAN CORPUSCULAR HEMOGLOBIN 29.9 pg (25-34); MEAN PLATELET VOLUME 10.3 fL (7.4-10.4); PLATELET COUNT 237 K/uL (130-400); RED BLOOD COUNT 3.45 M/uL (4.2-5.4); WHITE BLOOD COUNT 5.85 K/uL (4.8-10.8)
[2016-06-04 07:51] VITALS: BP_SYST 154; BP_SYST 158; BP_DIAS 79; BP_DIAS 89; PULSE 64; TEMP 36.9; O2SAT 98
[2016-06-04 08:16] LABS: BUN/CREATININE RATIO 20.7 (10-20); CALCIUM 8.2 mg/dl (8.5-10.1); CREATININE 0.86 mg/dl (0.60-1.20); POTASSIUM 3.4 mmol/L (3.5-5.1)
[2016-06-04] MEDS: METOPROLOL SUCC 25MG EXT REL TAB PO SCH (08:23)
[2016-06-04] MEDS: ESCITALOPRAM OXALATE 10 MG TAB PO SCH (08:23)
[2016-06-04] MEDS: CLOPIDOGREL BISULFATE 75 MG TAB PO SCH (08:23)
[2016-06-04] MEDS: DONEPEZIL HCL 10 MG TAB PO SCH (08:23)
[2016-06-04] MEDS: ATORVASTATIN 10 MG TAB PO SCH (08:23)
[2016-06-04] MEDS: CYANOCOBALAMIN 500 MCG TAB (VIT B-12) PO SCH (08:23)
[2016-06-04] MEDS: ACETAMINOPHEN 325 MG TAB PO PRN ×3 (08:24→23:48)
[2016-06-04 09:46] VITALS: BP 106/68
[2016-06-04] MEDS ORDERED: POTASSIUM CHLORIDE 20 MEQ TABCR PO ONE (11:30)
--- NOTE | 2016-06-04 14:30 | Hospitalist Progress Note ---
Hospitalist Progress Note Date of Service Jun 04, 2016. (Bebe Garcia ., STEPHC) Subjective Pt evaluation today including: conversation w/ patient, physical exam, chart review, lab review, review of inpatient medication list Pain: 5/10 dull pain in right hip PO Intake: Tolerating PO diet Voiding: no voiding problems Patient reports feeling well. She still complains of 5/10 dull pain in right hip that is worse with movement. Patient states that when she was up walking this morning, she felt a bit more unsteady today compared to yesterday. She denies any lightheadedness, palpitations, shortness of breath while walking. She states that she felt "shaky" when she was walking. The patient denies fevers, chills, sweats, chest pain, palpitations, claudication, cough, wheezing , shortness of breath, nausea, vomiting, abdominal pain, dysuria, hematuria, urinary retention, paralysis, weakness, numbness and tingling. Additional Comments: See HPI for pertinent positives and negatives. All other systems reviewed and negative. (Bebe Garcia ., KYLE-C) Objective Vital Signs Date Time Temp Pulse Resp B/P Pulse Ox O2 Delivery O2 Flow Rate FiO2 06/04/16 09:46 106/68 06/04/16 07:51 36.9 64 18 158/89 98 Room Air 154/79 06/04/16 07:35 Room Air 06/04/16 00:06 36.5 57 16 120/69 95 Room Air 06/03/16 23:30 Room Air 06/03/16 20:00 98 Room Air 06/03/16 16:00 98 Room Air 06/03/16 15:18 37.0 67 18 142/74 98 Room Air (Bebe Garcia, KYLE-C) Physical Exam General Appearance: WD/WN, no apparent distress Eyes: normal inspection, PERRL, EOMI ENT: normal ENT inspection, hearing grossly normal, pharynx normal Neck: supple, no JVD, trachea midline Respiratory/Chest: lungs clear, normal breath sounds, no respiratory distress Cardiovascular: regular rate, rhythm, no gallop, no murmur Abdomen: normal bowel sounds, non tender, soft Extremities: non-tender, normal inspection, no pedal edema, + pertinent finding (right hip TTP) Neurologic/Psychiatric: alert, normal mood/affect, oriented x 3 Skin: normal color, warm/dry, no rash (Bebe Garcia ., PA-C) Laboratory Results Last 24 Hours Test 06/04/16 06:55 White Blood Count 5.85 K/uL Red Blood Count 3.45 M/uL Hemoglobin 10.3 g/dL Hematocrit 31.2 % Mean Corpuscular Volume 90.4 fL Mean Corpuscular Hemoglobin 29.9 pg Mean Corpuscular Hemoglobin Concent 33.0 g/dl RDW Standard Deviation 47.7 fL RDW Coefficient of Variation 14.4 % Platelet Count 237 K/uL Mean Platelet Volume 10.3 fL Sodium Level 139 mmol/L Potassium Level 3.4 mmol/L Chloride Level 102 mmol/L Carbon Dioxide Level 29 mmol/L Anion Gap 8.0 mmol/L Blood Urea Nitrogen 18 mg/dl Creatinine 0.86 mg/dl Est Creatinine Clear Calc Drug Dose 42.5 ml/min Estimated GFR () 78.2 Estimated GFR (Non- 67.5 BUN/Creatinine Ratio 20.7 Random Glucose 87 mg/dl Calcium Level 8.2 mg/dl (Bebe Garcia ., PA-C) Assessment and Plan 70 y/o female with a recent diagnosis of Lewey body dementia with Parkinsonism, HTN, HLD, depression, and hypothyroidism presents to the ED with bilateral lower extremity weakness. Pt follows up with a neurologist at [facility]. Pt had a recent fall, denies head trauma. Head CT and lumbar spine CT no acute findings. Pt had been treated in the ED at [place] with opioid pain medication. Weakness, recent fall, h/o Lewey body dementia with Parkinsonism -Admitted to med/surg -Hold opiate medication -PT recommends acute inpatient rehab -Abd/pelvis CT 06/01: edema of right iliopsoas muscle and right femoral vasculature. Mild calcification and edema w/in central mesentery. No bowel obstruction or free air. Cholelithiasis with mildly dilated CBD. Recommend outpatient f/u. Positive urine culture with potts-sensitive enterococcus--likely colonization -UA looked clean -Pt denies any urinary symptoms -No tx necessary at this time HTN--stable -Continue metoprolol succinate 25 mg PO qd HLD -Continue atorvastatin 10 mg PO qd Depression -Continue Lexapro 10 mg PO qd Hypothyroidism -Continue Synthroid 50 mcg PO qd -TSH elevated at 4.79. Should adjust Synthroid dose with PCP in [place] Code Status -Level I, FULL RESUSCITATION STATUS Dispo -Pt lives in [place] area -PT recommends acute inpt rehab. Referral placed for [facility] in [place]. Insurance denied, bed available if Dr. Adkins can do peer to peer. -Family also requested referrals to nearby SNFs if [facility] is denied again. Case management following (Bebe Garcia ., PA-C) Reviewed: Pt Seen/Exam by Me, HO Notes (Juliane Adkins MD) History I agree with PA assessment and plan and have seen and examined pt myself Pt continues to have right hip pain with flexion and walking . Tylenol not helping much VSS RRR CTAB unlabored breathing ecchymnosis on anterior left leg Right hip with min ttp anteriorly and with flexion Labs reviewed Pt hx of parkinsons disease presents with weakness and falls, right hip pain s/ p fall secondary to right iliopsoas muscle strain -try toradol for pain No infectious etiologies , not a true UTI [place] Likely from parkisons No need for sinemet at this time due to Neurology thinking side effects could outweigh benefits [id number] denied for Acute rehab but I made appeal to [facility] which may take 2-30 days to find result, in meantime, plan for tx to SNF and can always move to acute rehab if appeal approved. (Juliane Adkins MD)
[2016-06-04 15:04] VITALS: BP 119/72; PULSE 65; TEMP 36.8; O2SAT 98
[2016-06-04] MEDS ORDERED: KETOROLAC TROMETHAMINE 15 MG/ML VIAL IV PRN (17:15)
[2016-06-04 23:25] VITALS: BP 147/81; PULSE 61; TEMP 36.8; O2SAT 96
[2016-06-05] VITALS (7 sets, daily range): BP systolic 120–135; BP diastolic 75–79; PULSE 57–62; TEMP 36.8–37; O2SAT 95–98
[2016-06-05] MEDS: LEVOTHYROXINE 50 MCG TAB PO SCH (06:03)
[2016-06-05 08:29] LABS: HEMATOCRIT 32.7 % (37-47); MEAN CELL VOLUME 90.3 fL (80-100); MEAN CORPUSCULAR HEMOGLOBIN 29.8 pg (25-34); MEAN PLATELET VOLUME 10.1 fL (7.4-10.4); PLATELET COUNT 257 K/uL (130-400); RED BLOOD COUNT 3.62 M/uL (4.2-5.4); WHITE BLOOD COUNT 5.88 K/uL (4.8-10.8)
[2016-06-05] MEDS: CYANOCOBALAMIN 500 MCG TAB (VIT B-12) PO SCH (08:32)
[2016-06-05] MEDS: ATORVASTATIN 10 MG TAB PO SCH (08:33)
[2016-06-05] MEDS: DONEPEZIL HCL 10 MG TAB PO SCH (08:33)
[2016-06-05] MEDS: CLOPIDOGREL BISULFATE 75 MG TAB PO SCH (08:33)
[2016-06-05] MEDS: METOPROLOL SUCC 25MG EXT REL TAB PO SCH (08:33)
[2016-06-05] MEDS: ESCITALOPRAM OXALATE 10 MG TAB PO SCH (08:33)
[2016-06-05 09:01] LABS: BUN/CREATININE RATIO 20.4 (10-20); CALCIUM 8.9 mg/dl (8.5-10.1); CREATININE 0.74 mg/dl (0.60-1.20); POTASSIUM 3.9 mmol/L (3.5-5.1)
--- NOTE | 2016-06-05 14:59 | Hospitalist Progress Note ---
Hospitalist Progress Note Date of Service Jun 05, 2016. (Bebe Garcia ., KYLE-C) Subjective Pt evaluation today including: conversation w/ patient, physical exam, chart review, lab review, review of inpatient medication list Pain: 5/10 sharp right hip pain with movement only PO Intake: Tolerating PO diet Voiding: no voiding problems Patient reports feeling well. She complains of a 5/10 sharp pain in her right hip that radiates down to her knee, but she states that this pain only occurs with movement or flexion of the hip. She denies any pain at rest. The patient denies fevers, chills, sweats, chest pain, palpitations, claudication, cough, wheezing, shortness of breath, nausea, vomiting, abdominal pain, dysuria, hematuria, urinary retention, paralysis, weakness, numbness and tingling. Additional Comments: See HPI for pertinent positives and negatives. All other systems reviewed and negative. (Bebe Garcia, KYLE-C) Objective Vital Signs Date Time Temp Pulse Resp B/P Pulse Ox O2 Delivery O2 Flow Rate FiO2 06/05/16 08:30 62 06/05/16 08:00 98 Room Air 06/05/16 07:08 37.0 57 18 120/75 98 Room Air 06/05/16 00:00 96 Room Air 06/04/16 23:25 36.8 61 20 147/81 96 Room Air 06/04/16 16:10 Room Air 06/04/16 15:04 36.8 65 20 119/72 98 Room Air (Bebe Garcia ., KYLE-C) Physical Exam General Appearance: WD/WN, no apparent distress Eyes: normal inspection, PERRL, EOMI ENT: normal ENT inspection, hearing grossly normal, pharynx normal Neck: supple, no JVD, trachea midline Respiratory/Chest: lungs clear, normal breath sounds, no respiratory distress Cardiovascular: regular rate, rhythm, no gallop, no murmur Abdomen: normal bowel sounds, non tender, soft Extremities: non-tender, normal inspection, no pedal edema, + pertinent finding (right hip TTP) Neurologic/Psychiatric: alert, normal mood/affect, oriented x 3 Skin: normal color, warm/dry, no rash (Bebe Garcia ., KYLE-C) Laboratory Results Last 24 Hours Test 06/04/16 21:06/05/16 07:50 Free Triiodothyronine 2.39 pg/ml White Blood Count 5.88 K/uL Red Blood Count 3.62 M/uL Hemoglobin 10.8 g/dL Hematocrit 32.7 % Mean Corpuscular Volume 90.3 fL Mean Corpuscular Hemoglobin 29.8 pg Mean Corpuscular Hemoglobin Concent 33.0 g/dl RDW Standard Deviation 47.4 fL RDW Coefficient of Variation 14.3 % Platelet Count 257 K/uL Mean Platelet Volume 10.1 fL Sodium Level 142 mmol/L Potassium Level 3.9 mmol/L Chloride Level 106 mmol/L Carbon Dioxide Level 30 mmol/L Anion Gap 6.0 mmol/L Blood Urea Nitrogen 15 mg/dl Creatinine 0.74 mg/dl Est Creatinine Clear Calc Drug Dose 49.4 ml/min Estimated GFR () 93.8 Estimated GFR (Non- 80.9 BUN/Creatinine Ratio 20.4 Random Glucose 85 mg/dl Calcium Level 8.9 mg/dl (Bebe Garcia ., PA-C) Assessment and Plan 70 y/o female with a recent diagnosis of Lewey body dementia with Parkinsonism, HTN, HLD, depression, and hypothyroidism presents to the ED with bilateral lower extremity weakness. Pt [place] with [place]ist [place] [facility]. Pt had a recent fall, denies head trauma. Head CT and lumbar spine CT no acute findings. Pt had been treated in the ED at [place] with opioid pain medication. Weakness, recent fall, h/o Lewey body dementia with Parkinsonism -Admitted to med/surg -Hold opiate medication -PT recommends acute inpatient rehab -Abd/pelvis CT 06/01: edema of right iliopsoas muscle and right femoral vasculature. Mild calcification and edema w/in central mesentery. No bowel obstruction or free air. Cholelithiasis with mildly dilated CBD. Recommend outpatient f/u. Positive urine culture with potts-sensitive enterococcus--likely colonization -UA looked clean -Pt denies any urinary symptoms -No tx necessary at this time HTN--stable -Continue metoprolol succinate 25 mg PO qd HLD -Continue atorvastatin 10 mg PO qd Depression -Continue Lexapro 10 mg PO qd Hypothyroidism -Continue Synthroid 50 mcg PO qd -TSH elevated at 4.79. Should adjust Synthroid dose with PCP in [place] Code Status -Level I, FULL RESUSCITATION STATUS Dispo -Pt lives in [facility] -PT recommends acute inpt rehab. Referral placed for [facility] in [place]. Insurance denied, peer to peer denied. Appeal in place, could take 2-30 days. -All facilities requested by family denied or no beds available. Case management following. Pt may be able to return home if she can have 24 hour supervision by family or caregivers and with home health services. (Bebe Garcia ., PA-C) Reviewed: Pt Seen/Exam by Me (Juliane Adkins MD) History I agree with PA assessment and plan and have seen and examined pt myself Pt continues to have right hip pain with flexion and walking . Tylenol not helping much, did not try Toradol ordered yesterday VSS RRR CTAB unlabored breathing ecchymnosis on anterior left leg Right hip with min ttp anteriorly and with flexion Labs reviewed Pt hx of parkinsons disease presents with weakness and falls, right hip pain s/ p fall secondary to right iliopsoas muscle strain -try toradol for pain-asked RN to give dose now No infectious etiologies , not a true UTI [place] Likely from parkinsons No need for sinemet at this time due to Neurology thinking side effects could outweigh benefits [id number] denied for Acute rehab but I made appeal to [facility] which was also denied but will go for a second look-->in meantime, plan for tx to SNF and can always move to acute rehab if appeal approved. (Juliane Adkins MD)
[2016-06-06] MEDS: LEVOTHYROXINE 50 MCG TAB PO SCH (06:14)
[2016-06-06] MEDS: ACETAMINOPHEN 325 MG TAB PO PRN (06:20)
[2016-06-06 07:14] VITALS: BP 176/84; PULSE 65; TEMP 36.6; O2SAT 99
[2016-06-06] MEDS: CLOPIDOGREL BISULFATE 75 MG TAB PO SCH (09:25)
[2016-06-06] MEDS: ATORVASTATIN 10 MG TAB PO SCH (09:25)
[2016-06-06] MEDS: METOPROLOL SUCC 25MG EXT REL TAB PO SCH (09:26)
[2016-06-06] MEDS: DONEPEZIL HCL 10 MG TAB PO SCH (09:26)
[2016-06-06] MEDS: CYANOCOBALAMIN 500 MCG TAB (VIT B-12) PO SCH (09:26)
[2016-06-06] MEDS: ESCITALOPRAM OXALATE 10 MG TAB PO SCH (09:26)
[2016-06-06 11:26] VITALS: BP 125/81; PULSE 61
--- NOTE | 2016-06-06 14:25 | Hospitalist Progress Note ---
Hospitalist Progress Note Date of Service Jun 06, 2016. (Bebe Garcia ., STEPHC) Subjective Pt evaluation today including: conversation w/ patient, physical exam, chart review, lab review, review of inpatient medication list Pain: 5/10 sharp pain in right hip with movement and flexion PO Intake: Tolerating PO diet Voiding: no voiding problems Patient reports feeling well. Her right hip pain has remained unchanged and is a 5/10 in severity. She states that she has no pain at rest and only feels pain with movement and flexion of her right leg. She is tolerating her PO diet well. She did take 1 dose of Toradol yesterday but states that she did not think it helped and does not want to use it again. The patient denies fevers, chills, sweats, chest pain, palpitations, claudication, cough, wheezing, shortness of breath, nausea, vomiting, abdominal pain, dysuria, hematuria, urinary retention, paralysis, weakness, numbness and tingling. Additional Comments: See HPI for pertinent positives and negatives. All other systems reviewed and negative. (Bebe Garcia ., KYLE-C) Objective Vital Signs Date Time Temp Pulse Resp B/P Pulse Ox O2 Delivery O2 Flow Rate FiO2 06/06/16 11:26 61 125/81 06/06/16 08:30 Room Air 06/06/16 07:14 36.6 65 20 176/84 99 Room Air 06/06/16 00:01 Room Air 06/05/16 23:33 36.9 59 18 135/78 95 Room Air 06/05/16 20:00 Room Air 06/05/16 15:30 98 Room Air 06/05/16 15:00 36.8 60 20 130/79 97 Room Air (Bebe Garcia ., KYLE-C) Physical Exam General Appearance: WD/WN, no apparent distress Eyes: normal inspection, PERRL, EOMI ENT: normal ENT inspection, hearing grossly normal, pharynx normal Neck: supple, no JVD, trachea midline Respiratory/Chest: lungs clear, normal breath sounds, no respiratory distress Cardiovascular: regular rate, rhythm, no gallop, no murmur Abdomen: normal bowel sounds, non tender, soft Extremities: normal inspection, no pedal edema, + pertinent finding (right hip TTP) Neurologic/Psychiatric: alert, normal mood/affect, oriented x 3 Skin: normal color, warm/dry, no rash (Bebe Garcia ., PA-C) Assessment and Plan 70 y/o female with a recent diagnosis of Lewey body dementia with Parkinsonism, HTN, HLD, depression, and hypothyroidism presents to the ED with bilateral lower extremity weakness. Pt follows up with a neurologist at [facility]. Pt had a recent fall, denies head trauma. Head CT and lumbar spine CT no acute findings. Pt had been treated in the ED at [place] with opioid pain medication. Weakness, recent fall, h/o Lewey body dementia with Parkinsonism -Admitted to med/surg -Hold opiate medication -Abd/pelvis CT 06/01: edema of right iliopsoas muscle and right femoral vasculature. Mild calcification and edema w/in central mesentery. No bowel obstruction or free air. Cholelithiasis with mildly dilated CBD. Recommend outpatient f/u. Positive urine culture with potts-sensitive enterococcus--likely colonization -UA looked clean -Pt denies any urinary symptoms -No tx necessary at this time HTN--stable -Continue metoprolol succinate 25 mg PO qd HLD -Continue atorvastatin 10 mg PO qd Depression -Continue Lexapro 10 mg PO qd Hypothyroidism -Continue Synthroid 50 mcg PO qd -TSH elevated at 4.79. Should adjust Synthroid dose with PCP in [place] Code Status -Level I, FULL RESUSCITATION STATUS Dispo -Pt lives in [facility] -PT recommends acute inpt rehab. Referral placed for [facility] in [place]. Insurance denied, peer to peer denied. Appeal also denied. -All facilities requested by family denied or no beds available. Case management following. Pt may be able to return home if she can have 24 hour supervision by family or caregivers and with home health services, however patient's significant other does not feel comfortable taking on caregiver role. -Patient's daughter did provide 1 more facility to try. Referral placed, awaiting determination. -Family was agreeable to try [facility] here in [place], they do have a bed and could accept pt. Insurance auth pending. (Bebe Garcia ., PA-C) Reviewed: Pt Seen/Exam by Me (Juliane Adkins MD) History I agree with PA assessment and plan and have seen and examined pt myself Pt continues to have right hip pain with flexion and walking . Tylenol not helping much, did not try Toradol ordered yesterday VSS RRR CTAB unlabored breathing ecchymnosis on anterior left leg Right hip with min ttp over greater trochanter and pain with hip flexion Pt hx of parkinsons disease presents with weakness and falls, right hip pain s/ p fall secondary to right iliopsoas muscle strain and trochanteric bursitis -naproxen prn, tylenol prn No infectious etiologies , not a true UTI [place] Likely from parkinsons No need for sinemet at this time due to Neurology thinking side effects could outweigh benefits (Juliane Adkins MD)
[2016-06-06 16:00] VITALS: O2SAT 99
[2016-06-06 16:04] VITALS: BP 109/71; PULSE 63; TEMP 37; O2SAT 97
[2016-06-06] MEDS: NAPROXEN 250 MG TAB PO SCH ×2 (19:15→20:20)
[2016-06-07] VITALS (7 sets, daily range): BP systolic 120–158; BP diastolic 68–83; PULSE 58–62; TEMP 36.4–36.9; O2SAT 95–99
[2016-06-07] MEDS: LEVOTHYROXINE 50 MCG TAB PO SCH (06:58)
[2016-06-07] MEDS: ATORVASTATIN 10 MG TAB PO SCH (07:58)
[2016-06-07] MEDS: DONEPEZIL HCL 10 MG TAB PO SCH (07:59)
[2016-06-07] MEDS: ESCITALOPRAM OXALATE 10 MG TAB PO SCH (07:59)
[2016-06-07] MEDS: CYANOCOBALAMIN 500 MCG TAB (VIT B-12) PO SCH (07:59)
[2016-06-07] MEDS: METOPROLOL SUCC 25MG EXT REL TAB PO SCH (08:00)
[2016-06-07] MEDS: NAPROXEN 250 MG TAB PO SCH (08:01)
[2016-06-07] MEDS: CLOPIDOGREL BISULFATE 75 MG TAB PO SCH (08:02)
--- NOTE | 2016-06-07 11:42 | Discharge Instructions ---
Discharge Instructions Admission Reason for Admission: Parkinson Disease, Weakness Of Both Lower Extremit (Bebe Garcia PA-C) Discharge Discharge Diagnosis / Problem: Weakness in lower extremities, Parkinsonism (Bebe Garcia PA-C) Discharge Diagnosis / Problem: Trochanteric bursitis, right iliopsoas muscle strain (Juliane Adkins MD) Discharge Goals Goal(s): Decrease discomfort, Improve function, Diagnostic testing, Therapeutic intervention (Bebe Garcia PA-C) Activity Recommendations Activity Limitations: resume your previous activity (as per physical therapy recommendation) . (Bebe Garcia PA-C) Instructions / Follow-Up Instructions / Follow-Up You were admitted to the hospital following an episode of weakness in the lower extremities bilaterally as well as a fall. You did not sustain any fractures or head trauma from the fall. This episode was likely related to your recent diagnosis of Lewey body dementia with Parkinsonism and gait disturbance. You were evaluated by physical therapy, who recommended an acute stay at inpatient rehabilitation, however this was denied by your insurance. This is currently being appealed, however the final determination may take time. In the meantime , you have been approved to go to a assisted facility in the [facility] instead. You have remained stable while in the hospital and are medically stable to go to the assisted facility. While you were in the hospital were found to have an elevated thyroid- stimulating hormone, indicating that your Synthroid dose may need to be adjusted. Please follow-up with your primary care provider regarding this medication so that they may adjust accordingly. No changes were made while inpatient. Medications: *You may resume your home medications as prescribed. *For your hip pain, you may take 2 Aleve twice a day as needed for pain. Follow up: *Please follow-up with a primary care provider within 1 week regarding your hospital stay as well as changes to your thyroid medication. Please seek medical attention if you experience sudden weakness, lightheadedness , loss of consciousness, fall, fevers, chills, sweats, chest pain, shortness of breath, nausea, vomiting, or numbness/tingling. (Bebe Garcia PA-C) Current Hospital Diet Patient's current hospital diet: Regular Diet (Bebe Garcia PA-C) Discharge Diet Recommended Diet: Regular Diet (Bebe Garcia PA-C) Pending Studies Studies pending at discharge: no (Bebe Garcia PA-C) Medical Emergencies . Who to Call and When: Medical Emergencies: If at any time you feel your situation is an emergency, please call 911 immediately. . (Bebe Garcia PA-C) Non-Emergent Contact Non-Emergency issues call your: Primary Care Provider, Neurologist Call Non-Emergent contact if: you have any medication questions . (Bebe Garcia PA-C) Past History Medical & Surgical History: (1) Weakness of both lower extremities (2) Parkinson disease (Bebe Garcia PA-C) . "Provider Documentation" section prepared by Bebe Garcia. (Bebe Garcia PA-C) VTE Core Measure Inpt VTE Proph given/why not?: Martha Allen, SCD's (Bebe Garcia PA-C)
--- NOTE | 2016-06-07 11:56 | Discharge Summary ---
Discharge Summary Date of Service Jun 07, 2016. (Bebe Garcia .MAYURI) Discharge Summary Admission Date: Jun 01, 2016 at 03:47 Discharge Date: Jun 07, 2016 Discharge Disposition: custodial facility Principal Diagnosis: Lower extremity weakness, fall, Lewey body dementia with Parkinson's Problems/Secondary Diagnoses: Trochanteric bursitis, right Status: acute HTN Status: chronic HLD Status: chronic Depression Status: chronic Hypothyroidism Status: chronic (Bebe Garcia PA-C) Medication Reconciliation Continued Medications: Atorvastatin (Lipitor) 10 Mg Tab 10 MG PO DAILY Clopidogrel (Plavix) 75 Mg Tab 75 MG PO DAILY Cyanocobalamin (Vitamin B-12) 1,000 Mcg Tab 1000 MCG PO DAILY Donepezil Hydrochloride (Aricept) 10 Mg Tab 10 MG PO DAILY Escitalopram (Lexapro) 10 Mg Tab 10 MG PO DAILY Levothyroxine Sodium (Synthroid) 50 Mcg Tab 50 MCG PO DAILY Metoprolol Succ (Toprol Xl) (Toprol-Xl) 25 Mg Tabcr 25 MG PO DAILY Naproxen (Aleve) 220 Mg Tab 220 MG PO Q12 PRN for Pain Discharge Exam Patient reports feeling well. She states that her right hip pain has remained unchanged and is currently a 5/10 in severity. She states that she does not have any pain at rest, however she does have pain with walking or flexion of her hip. She states that the naproxen does help to alleviate her pain. She otherwise denies any new complaints. The patient denies fevers, chills, sweats, chest pain, palpitations, claudication, cough, wheezing, shortness of breath, nausea, vomiting, abdominal pain, dysuria, hematuria, urinary retention, paralysis, numbness and tingling. Review of Systems: Constitutional: No chills, No fever, No sweats Eyes: No diplopia, No eye pain, No worsening of vision ENT: No hearing loss, No sore throat, No trouble swallowing Respiratory: No cough, No shortness of breath, No wheezing Cardiovascular: No chest pain, No claudication, No palpitations Abdomen: No nausea, No pain, No vomiting Musculoskeletal: + joint pain (R hip), No calf pain, No swelling Genitourinary - Female: No dysuria, No hematuria, No urinary retention Neurologic: + balance problems (unsteady on her feet), + weakness (lower extremities bilaterally), No numbness/tingling, No paralysis Integumentary: No color change, No itch, No rash Physical Exam: General Appearance: WD/WN, no apparent distress Eyes: normal inspection, PERRL, EOMI ENT: normal ENT inspection, hearing grossly normal, pharynx normal Neck: supple, no JVD, trachea midline Respiratory/Chest: lungs clear, normal breath sounds, no respiratory distress Cardiovascular: regular rate, rhythm, no gallop, no murmur Abdomen / GI: normal bowel sounds, non tender, soft Extremities: normal inspection, no calf tenderness, no pedal edema, + pertinent finding (R hip mildly TTP) Neurologic/Psychiatric: alert, normal mood/affect, oriented x 3, + pertinent finding (cogwheel rigidity in lower extremities) Skin: normal color, warm/dry, no rash (Bebe Garcia, MAYURI) Hospital Course 70 y/o female with a recent diagnosis of Lewey body dementia with Parkinsonism, HTN, HLD, depression, and hypothyroidism presents to the ED with bilateral lower extremity weakness. Pt follows up with a neurologist at [facility]. Pt had a recent fall, denies head trauma. Head CT and lumbar spine CT no acute findings. Pt had been treated in the ED at [facility] with opioid pain medication. Weakness, recent fall, h/o Lewey body dementia with Parkinsonism -Admitted to med/surg -PT/OT evaluate and treat, recommend acute rehab -Abd/pelvis CT 06/01: edema of right iliopsoas muscle and right femoral vasculature. Mild calcification and edema w/in central mesentery. No bowel obstruction or free air. Cholelithiasis with mildly dilated CBD. Recommend outpatient f/u. Trochanteric bursitis--ongoing -Hold opiate medication -Continue naproxen for right hip pain. Pt already takes Aleve prn at home, instructed she may take 2 tablets BID prn hip pain Positive urine culture with potts-sensitive enterococcus--likely colonization -UA looked clean -Pt denies any urinary symptoms -No tx necessary at this time HTN--stable -Continue metoprolol succinate 25 mg PO qd HLD -Continue atorvastatin 10 mg PO qd Depression--stable, pt has been doing well. Very unlikely that this will lead to a chronic disability alone. -Continue Lexapro 10 mg PO qd Hypothyroidism -Continue Synthroid 50 mcg PO qd -TSH elevated at 4.79. Should adjust Synthroid dose with PCP in [place] Code Status -Level I, FULL RESUSCITATION STATUS Dispo -Pt lives in [place] area with daughter -PT recommends acute inpt rehab. Referral placed for [facility] in [place]. Insurance denied, peer to peer denied. Appeal also denied. Higher appeal pending. -Pt may be able to return home if she can have 24 hour supervision by family or caregivers and with home health services, however patient's significant other does not feel comfortable taking on caregiver role. -Dr. Adkins did another peer to peer, pt is cleared for SNF in [place]. -Pt medically stable for discharge to SNF -F/u with PCP regarding hospital stay as well as thyroid medication dose due to elevated TSH. Should also at some point f/u regarding cholelithiasis and mildly dilated common bile duct on CT Total Time Spent: Greater than 30 minutes This includes examination of the patient, discharge planning, medication reconciliation, and communication with other providers. (Bebe Garcia ., MAYURI) Discharge Instructions Please refer to the electronic Patient Visit Report (Discharge Instructions) for additional information. (Bebe Garcia ., MAYURI) Reviewed: Pt Seen/Exam by Me (Juliane Adkins MD) History Physician Supervisor Electric Supervision Note: I interviewed and examined the patient. Discussed with KYLE Garcia and agree with findings and plan as documented in the note. Any exceptions or clarifications are listed here: Pt continues to have right lateral hip pain with flexion and walking . Tylenol not helping much, naproxen helping today VSS RRR CTAB unlabored breathing ecchymnosis on anterior left leg Right hip with min ttp over greater trochanter and pain with hip flexion Pt hx of parkinsons disease presents with weakness and falls, right hip pain s/ p fall secondary to right iliopsoas muscle strain and trochanteric bursitis -naproxen prn, tylenol prn No infectious etiologies , not a true UTI on UA/Ur cx Falls Likely from parkinsons No need for sinemet at this time due to Neurology thinking side effects could outweigh benefits Stable for discharge to SNF Documented By: Juliane Adkins (Juliane Adkins MD)
== END 2016-06-07 15:03 ==
LOC: ENRESERVDT → ENRESERVTM → C.EDB 22:33 → C.MS2W 06-01 03:47
PROVIDERS: ADMIT Hospitalist; ATTEND Family Medicine
DX: G31.83 Neurocognitive disorder with Lewy bodies (principal); F02.80 Dementia in other diseases classified elsewhere, unspecified severity, without behavioral disturbance, psychotic disturbance, mood disturbance, and anxiety; R29.6 Repeated falls; M70.61 Trochanteric bursitis, right hip; E53.8 Deficiency of other specified B group vitamins; I10 Essential (primary) hypertension; E78.00 Pure hypercholesterolemia, unspecified; F32.9 Major depressive disorder, single episode, unspecified; E03.9 Hypothyroidism, unspecified; Z79.899 Other long term (current) drug therapy; Z79.02 Long term (current) use of antithrombotics/antiplatelets